=== PATIENT | male | born 1965 | race Caucasian/White ===

== ENCOUNTER 2021-06-07 17:40 | Observation (INO) ==
[2021-06-07] MEDS ORDERED: SODIUM CHLORIDE 0.9% 1,000 ML IV STA (18:39)
[2021-06-07] MEDS ORDERED: HYDROmorphone 2 MG/1 ML VIAL IV STA (18:39)
[2021-06-07] MEDS ORDERED: ONDANSETRON 4 MG/2 ML VIAL IV STA (18:39)
[2021-06-07 18:57] LABS: Bilirubin,Urine Negative (Negative); Blood, Urine Negative (Negative); Glucose,Urine (UA) 50 mg/dL (Negative); Ketones,Urine 20 mg/dL (Negative); Mucus,Urine Occasional /LPF (Occasional); Nitrite,Urine Negative (Negative); Protein,Urine Negative; RBC,Urine 2 /HPF (0-4); Squamous Epithelial Cell,Urine Occasional /HPF (0-10); Urine Appearance CLEAR (Clear); Urine Color Amber (Yellow); Urine Specific Gravity 1.028 (1.001-1.035)
[2021-06-07 19:38] LABS: Basophils % 0.4 % (0.0-0.8); Eosinophils # 0.2 10*3/uL (0.0-0.87); Hematocrit 46.2 VOL% (42.0-52.0); Hemoglobin 15.8 GM/DL (14.0-18.0); Immature Granulocytes % 0.7 %; Immature Granulocytes Absolute 0.05 #; Lymphocytes # 0.7 10*3/uL (1.4-4.0); Lymphocytes % 8.6 % (21.2-54.2); Mean Corpuscular HGB Conc 34.2 GM/DL (32-36); Mean Corpuscular Volume 93.9 FL (87-102); Mean Platelet Volume 11.3 FL (9.6-12.0); Monocytes % 10.5 % (1.7-12.7); Neutrophils % 77.8 % (38.7-73.9); Platelet Count 165 T/CUMM (130-400); Red Blood Count 4.92 MC/CUMM (3.8-5.5); Red Cell Distribution Width 12.9 % (9.3-17.3); White Blood Count 7.7 T/CUMM (4-12)
[2021-06-07 19:52] LABS: Alanine Aminotransferase 30 U/L (16-61); Albumin 3.9 G/DL (3.4-5.0); Alkaline Phosphatase 76 U/L (45-117); Amylase 64 U/L (25-115); Aspartate Amino Transferase 22 U/L (0-37); Bilirubin,Total < 0.39 MG/DL (0.20-1.00); Blood Urea Nitrogen 23 MG/DL (7-18); Calcium 8.6 MG/DL (8.5-10.1); Carbon Dioxide 28 MMOL/L (21-32); Estimated Glom Filtration Rate 112 ML/MIN; Glucose 228 MG/DL (74-106); Osmolality,Calculated 285.7 MOS/KG (273-304); Potassium 4.4 MMOL/L (3.5-5.1); Sodium 138 MMOL/L (136-145); Total Protein 6.6 G/DL (6.4-8.2)
[2021-06-07] MEDS ORDERED: hydrALAZINE 20 MG/1 ML VIAL ONE (20:05)
[2021-06-07] MEDS ORDERED: hydrALAZINE 20 MG/1 ML VIAL IV STA (20:12)
[2021-06-07] MEDS ORDERED: DICYCLOMINE 20 MG/2 ML AMP IM ONE (20:46)
[2021-06-07] MEDS ORDERED: LABETALOL 20 MG/4 ML SYRINGE IV STA (23:24)
[2021-06-08] MEDS ORDERED: GLUCAGON 1 MG VIAL IM PRN ×2 (02:22→13:10)
[2021-06-08] MEDS ORDERED: hydrALAZINE 20 MG/1 ML VIAL IV PRN (02:22)
[2021-06-08] MEDS ORDERED: ONDANSETRON 4 MG/2 ML VIAL IV PRN (02:22)
[2021-06-08] MEDS ORDERED: DEXTROSE 50% 25 GM/50 ML VIAL IV PRN ×2 (02:22→13:10)
[2021-06-08] MEDS ORDERED: METHYLNALTREXONE 12 MG/0.6 ML VIAL SUBCUT ONE (02:32)
[2021-06-08] MEDS ORDERED: HYDROmorphone 2 MG/1 ML VIAL IV PRN (02:59)
[2021-06-08] MEDS ORDERED: NICOTINE 21 MG/24 HR PATCH TRANSDERM PRN (03:41)
[2021-06-08 05:39] LABS: Basophils % 0.1 % (0.0-0.8); Eosinophils % 0.2 % (0.00-10.9); Hemoglobin 15.9 GM/DL (14.0-18.0); Immature Granulocytes % 0.8 %; Immature Granulocytes Absolute 0.07 #; Lymphocytes # 0.9 10*3/uL (1.4-4.0); Lymphocytes % 10.1 % (21.2-54.2); Mean Corpuscular HGB Conc 33.8 GM/DL (32-36); Mean Corpuscular Volume 93.1 FL (87-102); Mean Platelet Volume 11.1 FL (9.6-12.0); Monocytes % 8.9 % (1.7-12.7); Neutrophils % 79.9 % (38.7-73.9); Platelet Count 180 T/CUMM (130-400); Red Blood Count 5.05 MC/CUMM (3.8-5.5); Red Cell Distribution Width 13.2 % (9.3-17.3); White Blood Count 9.1 T/CUMM (4-12)
[2021-06-08 06:05] LABS: Albumin 3.6 G/DL (3.4-5.0); Bilirubin,Total 0.6 MG/DL (0.20-1.00); Calcium 8.9 MG/DL (8.5-10.1); Osmolality,Calculated 280.8 MOS/KG (273-304); Total Protein 6.9 G/DL (6.4-8.2)
[2021-06-08] MEDS: INSULIN LISPRO 100 UNIT/ML SUBCUT SCH ×2 (08:20→11:08)
[2021-06-08] MEDS ORDERED: amLODIPine 5 MG TABLET PO SCH (09:00)
[2021-06-08 11:24] VITALS: BP 144/88
[2021-06-09] MEDS ORDERED: POLYETHYLENE GLYCOL POWDER 17 GM PACK PO SCH (09:00)
== END 2021-06-08 14:55 | disposition home or self-care (01) ==
LOC: N.EDINP 17:40 → N.ED 17:40 → N.EDINP 06-08 01:58 → N.4E 06-08 02:10
PROVIDERS: ADMIT Internal Medicine; ATTEND Internal Medicine